=== PATIENT | female | born 1950 | race Two or more races ===

== ENCOUNTER 2019-10-28 01:46 | Outpatient (CLI) | payer MEDICARE, SELFPAY ==
[2019-10-28 18:20] LABS: SARS-CoV-2 RNA PCR Negative
== END 2019-10-28 01:47 | disposition home or self-care (01) ==
LOC: ANHCOVIDDT 01:47
PROVIDERS: Visit Provider Internal Medicine Gastroenterology
DX: Z01.812 Encounter for preprocedural laboratory examination (principal); Z11.59 Encounter for screening for other viral diseases
CPT/HCPCS: 87635; C9803; U0003

== ENCOUNTER 2019-10-30 01:18 | Day surgery (SDC) | payer MEDICARE, SELFPAY ==
[2019-10-23 12:09] VITALS: BMI 17.8
[2019-10-30 08:12] VITALS: BP 111/91; PULSE 62; RESP 16; TEMP 36.8; O2SAT 100
[2019-10-30] MEDS: LACTATED RINGERS 1,000 ML 150 ML IV CONT (08:26)
--- NOTE | 2019-10-30 08:52 | PM.HPGS ---
History of Present Illness History of Present Illness Consent: Risks, benefits, and alternatives have been discussed and questions answered. Patient agrees to proceed with procedure. Chief complaint: Neoplasm Screening, Epigastric Pain Narrative: Alla Puentes is a 69 year old female With abdominal pain for several months. It is a deep discomfort felt in the midline, occasionally worse after meal. There has been no significant weight loss. She also has a history of colon polyps and is due for screening colonoscopy. Meds Home Medications and Allergies Home Medications Medication Instructions Recorded Confirmed Type calcium carbonate [Calcium 500] 500 mg PO DAILY 10/23/19 10/30/19 History levothyroxine 75 mcg PO DAILY 10/23/19 10/30/19 History ginbcfdqmmye-psr-mgaf-FA-vit K 1 tablet PO DAILY 10/23/19 10/30/19 History [Adults Multivitamin] Allergies Allergy/AdvReac Type Severity Reaction Status Date / Time No Known Allergies Allergy Verified 10/30/19 08:11 Vital Signs Vital Signs - 24 hr 10/30/19 08:12 Temperature 36.8 C Pulse Rate 62 Respiratory Rate 16 Blood Pressure 111/91 H Pulse Oximetry 100 Exam Const: General: alert Orientation/consciousness: patient oriented x3 Resp: Auscultation: clear to auscultation bilaterally Cardio: Rhythm: regular rhythm GI: GI Palp: Yes Soft to palpation and No Tenderness to palpation present (GI) Neuro: General: patient oriented x3 Assessment and Plan Assessment and plan (1) Abdominal pain: Code(s): R10.9 - Unspecified abdominal pain Status: Acute Assessment and Plan: EGD with possible biopsy or dilatation or cautery. (2) Colon cancer screening: Code(s): Z12.11 - Encounter for screening for malignant neoplasm of colon Status: Acute Assessment and Plan: Colonoscopy with possible biopsy or polypectomy or cautery or injection of substances.
--- NOTE | 2019-10-30 08:53 | WPDANESEPPF ---
Anes - Initial Pre Proc Eval Procedure: Operation Date: 10/30/19 09:00 Proposed Procedures p Esophagogastroduodenoscopy&Screen Colon - Fede Johnson MD Date/Time: 10/30/19 08:53 Surgeon: Fede Johnson MD Pre Op Diagnosis: Neoplasm Screening, Epigastric Pain Patient Data Age: 69 Gender: F Height: 5 ft 6 in Weight: 45.9 kg Last Vital Signs Temp 98.2 F 10/30/19 08:12 Pulse 62 10/30/19 08:12 Resp 16 10/30/19 08:12 BP 111/91 H 10/30/19 08:12 Pulse Ox 100 10/30/19 08:12 Allergies Allergy/AdvReac Type Severity Reaction Status Date / Time No Known Allergies Allergy Verified 10/30/19 08:11 Home Medications Medication Instructions Recorded Confirmed Type calcium carbonate [Calcium 500] 500 mg PO DAILY 10/23/19 10/30/19 History levothyroxine 75 mcg PO DAILY 10/23/19 10/30/19 History szcqtlwvxtjb-blo-mirl-FA-vit K 1 tablet PO DAILY 10/23/19 10/30/19 History [Adults Multivitamin] Patient hx anesthesia problems: none Family hx anesthesia problems: none Anes - Eval Final PreProcedure Day of Procedure 10/30/19 08:53 Patient weight: normal Heart: regular rate and rhythm Lungs: clear to auscultation Airway: Mallampati scale class II Neurological: alert and oriented Last oral intake: >/= 8 hours ASA classification: II Emergent: no Anesthetic plan: proceed Anesthesia type and monitoring: general GIVS and standard monitoring Informed Consent: The patient's anesthetic plan and its attendant risks and benefits were discussed with the patient/family/POA. Questions were solicited and answers provided to the satisfaction of the patient/family/POA.
[2019-10-30] MEDS: BENZOCAINE (*SP) 60 ML SPRAY CAN (HURRICAINE) 1 SPRAY MUCOUS MEM (09:10)
[2019-10-30 09:34] VITALS: BP 92/48; PULSE 59; RESP 21; O2SAT 100
--- NOTE | 2019-10-30 09:34 | SUR.OPER ---
EGD START 911, END 913 COLONOSCOPY START 918, END 929
[2019-10-30 09:44] VITALS: BP 98/52; PULSE 58; RESP 20; O2SAT 100
[2019-10-30 09:54] VITALS: BP 141/49; PULSE 62; RESP 21; O2SAT 98
== END 2019-10-30 10:40 | disposition home or self-care (01) ==
PROVIDERS: PCP Internal Medicine; Visit Provider Internal Medicine Gastroenterology
PROC: 0DJ08ZZ Inspection of Upper Intestinal Tract, Via Natural or Artificial Opening Endoscopic (ICD-10-PCS; CPT 43235; principal; 2019-10-30 09:00)
DX: Z12.11 Encounter for screening for malignant neoplasm of colon (principal); K57.30 Diverticulosis of large intestine without perforation or abscess without bleeding; Z86.010 Personal history of colon polyps; K21.9 Gastro-esophageal reflux disease without esophagitis
CPT/HCPCS: 43239; G0105; 87081; 88305; J2704; J7120